=== PATIENT | female | born 1940 | race Caucasian/White ===

== ENCOUNTER 2016-07-05 12:55 | Emergency (ER) | payer OTHER, BC ==
[2016-07-05 13:05] VITALS: RESP 16; TEMP 97.7
--- NOTE | 2016-07-05 13:12 | EDPHY ---
H & P Stated Complaint: fell getting out of bed/hit head on coumadin Time Seen by Provider: 07/05/16 13:11 HPI/ROS: CHIEF COMPLAINT: Head injury on Coumadin HISTORY OF PRESENT ILLNESS: The patient is referred to the emergency department for evaluation of head injury. She apparently fell while getting out of bed today and struck her head. She is currently anticoagulated for history of cardiac thrombus in atrial fibrillation. The patient complains of a mild headache. She has a slight contusion to her temporal scalp. The patient denies any complaints of acute neck pain. She denies any acute numbness or weakness. The patient denies any abdominal, back or extremity pain. REVIEW OF SYSTEMS: A comprehensive 10 point review of systems is otherwise negative aside from elements mentioned in the history of present illness. Source: Patient Exam Limitations: No limitations - Personal History Current Tetanus/Diphtheria Vaccine: Yes Tetanus Vaccine Date: 2014 - Medical/Surgical History Hx Asthma: Yes Hx Chronic Respiratory Disease: No Hx Diabetes: No Hx Cardiac Disease: No Hx Renal Disease: No Hx Cirrhosis: No Hx Alcoholism: Yes Hx HIV/AIDS: No Hx Splenectomy or Spleen Trauma: No Other PMH: PMH: colitis; asthma; migraines; BLE DVT; scaring on broncial tubes; nephritis. PSH: T&A; roberto; R shoulder rotator cuff; tubal ligation; hernia repair; afib - Social History Smoking Status: Former smoker - Physical Exam Exam: General Appearance: Alert, no distress Head: Small contusion noted to the left temporal area, a small nonsuturable laceration and slight hematoma to scalp Eyes: Pupils equal, round, reactive ENT, Mouth: No hemotympanum, no oral trauma Neck: Nontender, trachea midline Respiratory: No chest wall tender, subcutaneous air, lungs clear bilaterally Cardiovascular: Regular rate and rhythm Abdomen: Abdomen is soft and nontender, pelvis stable Skin: No lacerations, No abrasion Back: No midline T/L/S pain Extremities: Nontender, full range of motion Neurological: A&Ox3, normal motor function, normal sensory exam Constitutional: Initial Vital Signs Temperature (C) 36.5 C 07/05/16 13:02 Heart Rate 63 07/05/16 13:02 Respiratory Rate 16 07/05/16 13:02 Blood Pressure 135/87 H 07/05/16 13:02 O2 Sat (%) 92 07/05/16 13:02 O2 Delivery Mode Room Air Allergies/Adverse Reactions: meperidine HCl [From Demerol] Allergy (Severe, Verified 06/18/13 16:52) decreased breathing Penicillins Allergy (Severe, Verified 06/18/13 16:51) Rash Sulfa (Sulfonamide Antibiotics) Allergy (Severe, Verified 06/18/13 16:51) Rash amoxicillin trihydrate [From Augmentin] Allergy (Verified 06/25/13 11:41) meloxicam Allergy (Verified 06/18/13 17:05) indigestion potassium clavulanate [From Augmentin] Allergy (Verified 06/25/13 11:41) cats Allergy (Uncoded 06/18/13 16:52) Home Medications: Medication Instructions Recorded Beclomethasone Qvar 80 [Qvar 80 2 puffs IH BID 06/18/13 (*)] Fexofenadine HCl [Eloina Allergy] 180 mg PO DAILY PRN 06/18/13 Gabapentin [Neurontin] 1,200 mg PO HS 06/18/13 traMADol [Ultram 50 mg (*)] 50 mg PO Q4 PRN 06/18/13 traZODone [traZODONE 50MG (*)] 100 mg PO HS 06/18/13 Herbals/Supplements -Info Only 1 ea PO DAILY 04/25/15 Lansoprazole [Prevacid] 30 mg PO DAILY 04/25/15 Multivitamins [Multivitamin (*)] 1 each PO DAILY 02/19/16 Naphazoline HCl/Pheniramine 1 - 2 drops OP QID PRN 02/19/16 [Opcon-A Eye Drops] oxyCODONE IR [Oxycodone Ir (*)] 5 - 10 mg PO Q3HRS PRN #60 tab 03/14/16 Ondansetron Odt [Zofran Odt 4 mg 4 mg PO Q4 PRN #20 tab 04/04/16 (*)] Acetaminophen [Tylenol 325mg (*)] 650 mg PO Q4 PRN #0 tab 04/08/16 Diltiazem [Cardizem Ir Q6hr] 30 mg PO Q8HRS #0 tab 04/08/16 Warfarin Sodium [Coumadin 5MG (*)] 5 mg PO DAILY16 #0 tab 04/08/16 Hyoscyamine Sulfate 07/05/16 Medical Decision Making - Diagnostics Imaging: CT head without contrast: Images reviewed by myself, negative for intracranial hemorrhage. ED Course/Re-evaluation: The patient presents to the ED for evaluation of head trauma. The patient is currently over 76 years old and anticoagulated with complaints of trauma. A CT scan of the brain has been ordered. 2:00 p.m.: I am informed the patient's head CT scan demonstrates no evidence of intracranial hemorrhage or skull fracture. I examined the patient again. She remains with a GCS of 15. At this point time given the mechanism of her injury I do feel she is low risk for delayed bleeding. I do feel that she can be discharged home with instructions to return to the ED for the development of a more significant headache, neurologic symptoms, vomiting or other concerns. Differential Diagnosis: Differential diagnosis considered includes intracranial hemorrhage, skull fracture, concussion Departure - Departure Disposition: Home, Routine, Self-Care Clinical Impression: Scalp contusion, Anticoagulated Condition: Good Instructions: Scalp Contusion in Adults (ED) Additional Instructions: 1. Return to the ED for the development of severe headache, numbness, weakness , difficulty speaking, vomiting or other concerns. Referrals: Baltazar Paulino MD [Primary Care Provider] - As per Instructions
--- NOTE | 2016-07-05 14:07 | CT ---
CT Head Without Contrast History: Fall from bed and then a heavy lamp fell on head; on Coumadin. Comparison: MR brain June 29, 2012. Technique: Axial unenhanced images were obtained from the vertex through the skull base. Dose reduct ion techniques were utilized. Findings: A small right frontal scalp hematoma is present. Schuster-white differentiation is preserved. T here is mild diffuse cerebral atrophy with scattered periventricular and subcortical low attenuation, suggesting chronic microvascular ischemic gliosis. No intracranial hemorrhage is identified. No ext raaxial fluid collections are identified. There is no mass, mass effect or evidence of infarct. Athe rosclerotic calcification is present in the distal internal carotid arteries. The skull and skull bas e are unremarkable. Mild mucous membrane thickening is present in the paranasal sinuses. Small air fl uid levels are present in the maxillary sinuses. The mastoid air cells are clear. Impression: 1. No acute intracranial findings. 2. Diffuse cerebral atrophy with scattered periventricular and subcortical low attenuation consistent with chronic microvascular ischemic gliosis. 3. Probable acute maxillary sinusitis. Findings discussed with Dr. Trav Perez today at 1357 hours.
[2016-07-05 14:11] VITALS: BP 109/56; PULSE 64; O2SAT 97
== END 2016-07-05 14:11 | disposition home or self-care (01) ==
DX: S00.03XA Contusion of scalp, initial encounter (principal); D68.9 Coagulation defect, unspecified; J45.909 Unspecified asthma, uncomplicated; Z87.891 Personal history of nicotine dependence; W06.XXXA Fall from bed, initial encounter; Y92.003 Bedroom of unspecified non-institutional (private) residence as the place of occurrence of the external cause

== ENCOUNTER → 2016-07-05 | Outpatient (CLI) | payer OTHER, BC ==
--- NOTE | 2016-07-05 12:15 | DX ---
Right Hip, Three Views Indication: Total hip replacement. Follow up. Technique: AP, crosstable lateral, and frog-leg lateral views. Comparison: Two-view hip, April 22, 2016. Findings: A right total hip arthroplasty remains well seated and anatomically aligned. No perihardwar e fracture or lucency. Mild left hip osteoarthritis and moderate severe degenerative disk and facet a rthropathy in the lumbar spine are unchanged. Impression: Well-seated right total hip arthroplasty.
== END ==
LOC: BMCIMAGING 11:04
PROVIDERS: ATTEND Physician Assistant
DX: Z47.1 Aftercare following joint replacement surgery (principal); Z96.641 Presence of right artificial hip joint

== ENCOUNTER → 2016-07-10 | Outpatient (CLI) | payer OTHER, BC ==
--- NOTE | 2016-07-10 16:04 | US ---
Ultrasound Venous Duplex Doppler - Bilateral Legs at 1511 hours History: Pain and swelling. COMPARISON: Ultrasound March 2016 Findings: Ultrasound venous Duplex and Doppler imaging of the bilateral common femoral veins, femoral veins, popliteal veins, calf veins, and greater saphenous vein origins demonstrates normal compressi bility, Duplex color-flow, Doppler flow without deep venous thrombosis. However in the left greater s aphenous vein there is nonocclusive superficial thrombus throughout the left thigh and proximal calf region. Also in the left calf soleal vein there is nonocclusive superficial thrombus. No superficial thrombophlebitis in the right leg. Impression: 1. Superficial thrombophlebitis left leg. 2. No deep venous thrombosis bilateral legs. Message left with Dr. Shawn Paulino at 1600 hour, today. A Document Only message has been documented for Baltazar Paulino MD in the [employer] Critical Result system on 07/10/2016 16:02, Message ID [id number].
== END ==
LOC: FIMAGING 14:55
PROVIDERS: ATTEND Internal Medicine
DX: I80.02 Phlebitis and thrombophlebitis of superficial vessels of left lower extremity (principal)

== ENCOUNTER → 2016-08-01 | Outpatient (CLI) | payer OTHER, BC ==
--- NOTE | 2016-08-01 18:19 | DX ---
Bone Length Study (Single AP Upright Image, at 5:36 PM) Clinical History: 76-year-old female with a prior right hip arthroplasty and a left knee arthroplasty . Rule out limb length discrepancy. ICD 10 Diagnostic Code: M21.70. Comparison Studies: Right hip, dated 07/05/2016, and left knee dated 07/09/2013. Findings: There is a levorotatory lumbar scoliosis and pelvic tilt such that the right iliac crest is slightly higher than the left. There is stable anatomic positioning of the complete right hip arthro plasty and of the lateral left knee femoral-tibial hemiarthroplasty. A meli line dropped from the ce phalad aspect of the prosthetic right femoral head to the tibial plafond measures 5 mm longer than a plumbline dropped from the hopi left femoral head to the left tibial plafond level. Impression: There is a 5 mm limb length discrepancy, right leg longer than the left.
== END ==
LOC: FIMAGING 17:36
PROVIDERS: ATTEND Podiatrist Foot & Ankle Surgery
DX: M21.70 Unequal limb length (acquired), unspecified site (principal)

== ENCOUNTER → 2016-09-06 | Outpatient (CLI) | payer OTHER, BC | LOC: BMCIMAGING 10:57 | PROVIDERS: ATTEND Physician Assistant | DX: Z47.89 Encounter for other orthopedic aftercare (principal); Z96.641 Presence of right artificial hip joint ==

== ENCOUNTER → 2016-10-03 | Outpatient (CLI) | payer OTHER, BC | LOC: FIMAGING 13:57 | PROVIDERS: ATTEND Orthopaedic Surgery Orthopaedic Surgery of the Spine | DX: M41.85 Other forms of scoliosis, thoracolumbar region (principal); M41.86 Other forms of scoliosis, lumbar region; M21.70 Unequal limb length (acquired), unspecified site; M85.88 Other specified disorders of bone density and structure, other site ==

== ENCOUNTER → 2017-04-29 | Outpatient (CLI) | payer OTHER, BC | LOC: BHFA 11:00 | PROVIDERS: ATTEND Internal Medicine Cardiovascular Disease | DX: I48.0 Paroxysmal atrial fibrillation (principal) ==

== ENCOUNTER → 2017-06-30 | Outpatient (CLI) | payer OTHER, BC | LOC: BMCIMAGING 11:59 | PROVIDERS: ATTEND Family Medicine | DX: R60.0 Localized edema (principal) ==

== ENCOUNTER 2017-10-16 15:24 | Emergency (ER) | payer OTHER, BC ==
[2017-10-16] MEDS ORDERED: NS 1,000 ML IV ONE ×2 (15:45→16:18)
[2017-10-16] MEDS ORDERED: ONDANSETRON 4 MG/2 ML VIAL IVP ONE (15:45)
--- NOTE | 2017-10-16 15:55 | EDPHY ---
H & P Stated Complaint: n/v Time Seen by Provider: 10/16/17 15:54 - Personal History Current Tetanus/Diphtheria Vaccine: Yes Current Tetanus Diphtheria and Acellular Pertussis (TDAP): Yes Tetanus Vaccine Date: 2014 - Medical/Surgical History Hx Asthma: Yes Hx Chronic Respiratory Disease: No Hx Diabetes: No Hx Cardiac Disease: Yes Hx Renal Disease: No Hx Cirrhosis: No Hx Alcoholism: Yes Hx HIV/AIDS: No Hx Splenectomy or Spleen Trauma: No Other PMH: PMH: colitis; asthma; migraines; BLE DVT; scaring on broncial tubes; nephritis. PSH: T&A; roberto; R shoulder rotator cuff; tubal ligation; hernia repair; afib - Social History Smoking Status: Former smoker Constitutional: Initial Vital Signs Temperature (C) 37.1 C 10/16/17 15:33 Heart Rate 84 10/16/17 15:33 Respiratory Rate 16 10/16/17 15:33 Blood Pressure 92/60 L 10/16/17 15:33 O2 Sat (%) 93 10/16/17 15:33 O2 Delivery Mode Room Air Allergies/Adverse Reactions: meperidine HCl [From Demerol] Allergy (Severe, Verified 10/16/17 15:29) decreased breathing Penicillins Allergy (Severe, Verified 10/16/17 15:29) Rash Sulfa (Sulfonamide Antibiotics) Allergy (Severe, Verified 10/16/17 15:29) Rash amoxicillin trihydrate [From Augmentin] Allergy (Verified 10/16/17 15:29) meloxicam Allergy (Verified 10/16/17 15:29) indigestion potassium clavulanate [From Augmentin] Allergy (Verified 10/16/17 15:29) cats Allergy (Uncoded 10/16/17 15:29) Home Medications: Medication Instructions Recorded Beclomethasone Qvar 80 [Qvar 80] 2 puffs IH BID 06/18/13 Fexofenadine HCl [Eloina Allergy] 180 mg PO DAILY PRN 06/18/13 Gabapentin [Neurontin] 1,200 mg PO HS 06/18/13 traMADol [Ultram 50 mg (*)] 50 mg PO Q4 PRN 06/18/13 traZODone [traZODONE 50MG (*)] 100 mg PO HS 06/18/13 Herbals/Supplements -Info Only 1 ea PO DAILY 04/25/15 Lansoprazole [Prevacid] 30 mg PO DAILY 04/25/15 Multivitamins [Multivitamin (*)] 1 each PO DAILY 02/19/16 Naphazoline HCl/Pheniramine 1 - 2 drops OP QID PRN 02/19/16 [Opcon-A Eye Drops] oxyCODONE IR [Oxycodone Ir (*)] 5 - 10 mg PO Q3HRS PRN #60 tab 03/14/16 Ondansetron Odt [Zofran Odt 4 mg 4 mg PO Q4 PRN #20 tab 04/04/16 (*)] Acetaminophen [Tylenol 325mg (*)] 650 mg PO Q4 PRN #0 tab 04/08/16 Diltiazem [Cardizem Ir Q6hr] 30 mg PO Q8HRS #0 tab 04/08/16 Warfarin Sodium [Coumadin 5MG (*)] 5 mg PO DAILY16 #0 tab 04/08/16 Hyoscyamine Sulfate 07/05/16 Lasix 10/16/17 Potassium Chloride 10/16/17 Medical Decision Making ED Course/Re-evaluation: CHIEF COMPLAINT: Nausea and vomiting HISTORY OF PRESENT ILLNESS: The patient is a 77 y/o female with a history of C- diff complaining of nausea and vomiting, onset 3 days ago. She has been able to hold down little food or water. She has associated headache. She denies diarrhea , abdominal pain, urinary complaints, or any other associated symptoms. She had some symptoms relief with butterbur this morning. REVIEW OF SYSTEMS: A 10 point review of systems was performed and is negative with the exception of the elements mentioned in the history of present illness. PHYSICAL EXAM: HR, BP, O2 Sat, RR. Temp noted General Appearance: Alert, well hydrated, appropriate, and non-toxic appearing. Head: Atraumatic without scalp tenderness or obvious injury Eyes: Pupils equal, round, reactive to light and accommodation, EOMI, no trauma , no injection. Ears: Clear bilaterally, no perforation, normal landmarks Nose: Atraumatic, no rhinorrhea, clear. Throat: There is no erythema or exudates, no lesions, normal tonsils, mucus membranes dry. Neck: Supple, nontender, no lymphadenopathy. Respiratory: No retractions, no distress, no wheezes, and no accessory muscle use. Lungs are clear to auscultation bilaterally. Cardiovascular: Regular rate and rhythm, no murmurs, rubs, or gallops. Good capillary refill all extremities. Gastrointestinal: Abdomen is soft, nontender, non-distended, no masses, no rebound, no guarding, no peritoneal signs. Musculoskeletal: Normal active ROM of all extremities, atraumatic. Neurological: Alert, appropriate, and interactive. Skin: No rashes, good turgor, no nodules on palpation. Past medical history: C-diff, migraines Past surgical history: Denies Family history: Non-contributory Social history: Daughter at bedside, lives in [place], retired DIAGNOSTICS/PROCEDURES/CRITICAL CARE TIME: DIFFERENTIAL DIAGNOSIS: The differential diagnosis for the patient's nausea and vomiting included but was not limited to gastroenteritis, gastritis, appendicitis, migraine, and medication side effect. MEDICAL DECISION MAKING: The patient presents with nausea, vomiting, and headache, onset 3 days ago. She has associated headache. She has been unable to keep fluids and food down. On exam, her abdomen is benign and her mucus membranes are dry. Plan for Reglan due to patient's headache and possible migraine. Labs will include CBC, chems, and urinalysis. PO challenge when she is no longer nauseated. 4:45 PM- I reassessed the patient and found her condition improved. Labs were normal. She feels much better now. Plan for discharge if PO challenge is successful. 6:00 PM- I reassessed the patient and found her condition improved. She is tolerating PO and has to urinate. I feel she is safe to return home. She agrees to this course of action. - Data Points Laboratory Results: Laboratory Results 10/16/17 15:50 10/16/17 15:50 10/16/17 10/16/17 15:50 15:50 WBC 5.46 10^3/uL 10^3/uL (3.80-9.50) RBC 4.57 10^6/uL 10^6/uL (4.18-5.33) Hgb 14.5 g/dL g/dL (12.6-16.3) Hct 42.6 % % (38.0-47.0) MCV 93.2 fL fL (81.5-99.8) MCH 31.7 pg pg (27.9-34.1) MCHC 34.0 g/dL g/dL (32.4-36.7) RDW 13.7 % % (11.5-15.2) Plt Count 309 10^3/uL 10^3/uL (150-400) MPV 9.0 fL fL (8.7-11.7) Neut % (Auto) 63.2 % % (39.3-74.2) Lymph % (Auto) 24.7 % % (15.0-45.0) [place] % (Auto) 7.7 % % (4.5-13.0) Eos % (Auto) 2.7 % % (0.6-7.6) Baso % (Auto) 1.3 % % (0.3-1.7) Nucleat RBC Rel Count 0.0 % % (0.0-0.2) Absolute Neuts (auto) 3.45 10^3/uL 10^3/uL (1.70-6.50) Absolute Lymphs (auto) 1.35 10^3/uL 10^3/uL (1.00-3.00) Absolute Monos (auto) 0.42 10^3/uL 10^3/uL (0.30-0.80) Absolute Eos (auto) 0.15 10^3/uL 10^3/uL (0.03-0.40) Absolute Basos (auto) 0.07 10^3/uL 10^3/uL (0.02-0.10) Absolute Nucleated RBC 0.00 10^3/uL 10^3/uL (0-0.01) Immature Gran % 0.4 % % (0.0-1.1) Immature Gran # 0.02 10^3/uL 10^3/uL (0.00-0.10) Sodium 140 mEq/L mEq/L (135-145) Potassium 3.8 mEq/L mEq/L (3.5-5.2) Chloride 104 mEq/L mEq/L (97-110) Carbon Dioxide 26 mEq/l mEq/l (22-31) Anion Gap 10 mEq/L mEq/L (8-16) BUN 14 mg/dL mg/dL (7-23) Creatinine 0.7 mg/dL mg/dL (0.6-1.0) Estimated GFR > 60 Glucose 93 mg/dL mg/dL (70-100) Calcium 9.6 mg/dL mg/dL (8.5-10.4) Medications Given: Discontinued Medications Sodium Chloride (Ns) 1,000 mls @ 0 mls/hr IV ONCE ONE PRN Reason: Wide Open Stop: 10/16/17 15:46 Last Admin: 10/16/17 15:48 Dose: 1,000 mls Sodium Chloride (Ns) 1,000 mls @ 0 mls/hr IV EDNOW ONE; Wide Open PRN Reason: Protocol Stop: 10/16/17 16:19 Last Admin: 10/16/17 16:25 Dose: 1,000 mls Famotidine/Sodium Chloride (Pepcid 20 Mg (Premix)) 50 mls @ 200 mls/hr IV EDNOW ONE Stop: 10/16/17 16:32 Last Admin: 10/16/17 16:25 Dose: 50 mls Metoclopramide HCl (Reglan Injection) 10 mg IVP EDNOW ONE Stop: 10/16/17 16:20 Last Admin: 10/16/17 16:27 Dose: 10 mg Ondansetron HCl (Zofran) 4 mg IVP EDNOW ONE Stop: 10/16/17 15:46 Last Admin: 10/16/17 15:48 Dose: 4 mg Departure - Departure Disposition: Home, Routine, Self-Care Clinical Impression: Dehydration Nausea & vomiting Qualifiers: Vomiting type: unspecified Vomiting Intractability: non-intractable Qualified Code(s): R11.2 - Nausea with vomiting, unspecified Condition: Good Instructions: Dehydration (ED), Acute Nausea and Vomiting (ED) Additional Instructions: 1. For your nausea and vomiting, I suggested you start with a bland diet and advance as tolerated. This means start with clear liquids such as water, Gatorade, juice, flat non-caffeinated soda. If you tolerate clear liquids, then you may add bland foods such as bananas, rice, or toast. If you do not have any worsening of your symptoms, you may begin to resume a regular diet. 2. Follow-up with your primary care provider for continued symptoms in 1 to 2 days. 3. Return to the emergency department for vomiting blood, faintness, or any other worsening of condition. Referrals: Baltazar Paulino MD [Primary Care Provider] - As per Instructions Report Scribed for: Sam Soria Report Scribed by: Jeni Villarreal Date of Report: 10/16/17 Time of Report: 16:25
[2017-10-16] MEDS ORDERED: FAMOTIDINE 20 MG/NACL 50 ML IV ONE (16:18)
[2017-10-16] MEDS ORDERED: METOCLOPRAMIDE 10 MG/2 ML VIAL IVP ONE (16:19)
[2017-10-16 16:35] LABS: PLATELET COUNT 309 10^3/uL (150-400)
[2017-10-16 18:07] VITALS: BP 132/80
== END 2017-10-16 18:13 | disposition home or self-care (01) ==
DX: R11.2 Nausea with vomiting, unspecified (principal); E86.0 Dehydration; E86.9 Volume depletion, unspecified; J45.909 Unspecified asthma, uncomplicated; Z79.01 Long term (current) use of anticoagulants; Z87.891 Personal history of nicotine dependence
CPT/HCPCS: 96361; 96365; 96375; 99284; J2405; J2765

== ENCOUNTER → 2017-12-03 | Outpatient (CLI) | payer OTHER, BC | LOC: BHFA 09:30 | PROVIDERS: ATTEND Internal Medicine Cardiovascular Disease | DX: R07.9 Chest pain, unspecified (principal); I25.10 Atherosclerotic heart disease of native coronary artery without angina pectoris; I48.0 Paroxysmal atrial fibrillation | CPT/HCPCS: 78452; 93017; A9500; J2785 ==

== ENCOUNTER → 2018-03-09 | Outpatient (CLI) | payer OTHER, BC | LOC: BMCIMAGING 17:05 | PROVIDERS: ATTEND Emergency Medicine | DX: S89.92XA Unspecified injury of left lower leg, initial encounter (principal); Z96.652 Presence of left artificial knee joint ==

== ENCOUNTER 2018-09-23 23:36 | Observation (INO) | payer OTHER, BC ==
--- NOTE | 2018-09-23 23:54 | EDPHY ---
H & P Stated Complaint: cat scratch right arm and vomiting/diarrhea Time Seen by Provider: 09/23/18 23:54 HPI/ROS: HPI CHIEF COMPLAINT: Cat scratch, redness and swelling to right arm HISTORY OF PRESENT ILLNESS: 78-year-old female, presents emergency room stating around noon today her cat scratch turn her right arm. This is on the palmar side distal aspect of her right forearm. She now has an area of 10 cm x 5 cm erythema, swelling, discomfort. In the center of this is a small laceration nonsuturable. No pus. However it is mildly red and warm. Additionally she reports before this happening she had a couple episodes of diarrhea vomiting she believes she ate bad pizza last night. This is since resolved. No significant abdominal pain. Denies chest pain or shortness of breath Past Medical History: Hypertension, AFib, DVT, migraines, Past Surgical History: No recent surgery Social History: Denies drugs alcohol tobacco Family History: Noncontributory ROS REVIEW OF SYSTEMS: 10 Systems were reviewed and negative with the exception of the elements mentioned in the history of present illness. Exam Constitutional triage nursing summary reviewed, vital signs reviewed, awake/ alert. Eyes normal conjunctivae and sclera, EOMI, PERRLA. HENT normal inspection, atraumatic, moist mucus membranes, no epistaxis, neck supple/ no meningismus, no raccoon eyes. Respiratory clear to auscultation bilaterally, normal breath sounds, no respiratory distress, no wheezing. Cardiovascular rate normal, regular rhythm, no murmur, no edema, distal pulses normal. Gastrointestinal soft, non-tender, no rebound, no guarding, normal bowel sounds, no distension, no pulsatile mass. Genitourinary no CVA tenderness. Musculoskeletal no midline vertebral tenderness, full range of motion, no calf swelling, no tenderness of extremities, no meningismus, good pulses, neurovascularly intact. Skin right upper extremity: Mild erythema and warmth and tenderness to the right distal aspect of the forearm palmar side. The center of this area there is a small laceration. No pus. Nonsuturable. Neurologic awake, alert and oriented x 3, AAOx3, moves all 4 extremities equally, motor intact, sensory intact, CN II-XII intact, normal cerebellar, normal vision, normal speech. Psychiatric normal mood/affect. Heme/Lymph/Immune no lymphadenopathy. Differential Diagnosis: Includes but is not limited to in a particular order arm cellulitis, infection, cat scratch disease Medical Decision Making: Plan for this patient IV establishment basic labs, IV Ancef, gentle IV fluids and re-evaluate Re-evaluation: 0227: Discussed with the patient for need for admission the hospital for cellulitis of the right forearm from a cat scratch rather large area upon arrival. During her ER visit of 3 hr he did track up her arm slightly. It has been outlined. She received 2 g IV Ancef. IV fluids, labs reviewed reassuring. Patient is agreeable for admission overnight Dr. Matos consulted. Source: Patient - Personal History Current Tetanus/Diphtheria Vaccine: Yes Current Tetanus Diphtheria and Acellular Pertussis (TDAP): Yes Tetanus Vaccine Date: 2014 - Medical/Surgical History Hx Asthma: Yes Hx Chronic Respiratory Disease: No Hx Diabetes: No Hx Cardiac Disease: Yes Hx Renal Disease: No Hx Cirrhosis: No Hx Alcoholism: Yes Hx HIV/AIDS: No Hx Splenectomy or Spleen Trauma: No Other PMH: PMH: colitis; asthma; migraines; BLE DVT; scaring on broncial tubes; nephritis. PSH: T&A; roberto; R shoulder rotator cuff; tubal ligation; hernia repair; afib - Social History Smoking Status: Former smoker Constitutional: Initial Vital Signs Temperature (C) 36.8 C 09/23/18 23:38 Heart Rate 92 09/23/18 23:38 Respiratory Rate 16 09/23/18 23:38 Blood Pressure 117/78 09/23/18 23:38 O2 Sat (%) 94 09/23/18 23:38 O2 Delivery Mode Room Air Allergies/Adverse Reactions: meperidine HCl [From Demerol] Allergy (Severe, Verified 09/23/18 23:42) decreased breathing Penicillins Allergy (Severe, Verified 09/23/18 23:42) Rash Sulfa (Sulfonamide Antibiotics) Allergy (Severe, Verified 09/23/18 23:42) Rash amoxicillin trihydrate [From Augmentin] Allergy (Verified 09/23/18 23:42) meloxicam Allergy (Verified 09/23/18 23:42) indigestion potassium clavulanate [From Augmentin] Allergy (Verified 09/23/18 23:42) cats Allergy (Uncoded 09/23/18 23:42) Home Medications: Medication Instructions Recorded Beclomethasone Qvar 80 [Qvar 80] 2 puffs IH BID 06/18/13 Fexofenadine HCl [Eloina Allergy] 180 mg PO DAILY PRN 06/18/13 Gabapentin [Neurontin] 1,200 mg PO HS 06/18/13 traZODone [traZODONE 50MG (*)] 100 mg PO HS 06/18/13 Herbals/Supplements -Info Only 1 ea PO DAILY 04/25/15 Multivitamins [Multivitamin (*)] 1 each PO DAILY 02/19/16 Naphazoline HCl/Pheniramine 1 - 2 drops OP QID PRN 02/19/16 [Opcon-A Eye Drops] Acetaminophen [Tylenol 325mg (*)] 650 mg PO Q4 PRN #0 tab 04/08/16 Hyoscyamine Sulfate [Levsin, 0.125 mg PO DAILY PRN 07/05/16 Hyomax-Sl 0.125 mg (*)] Furosemide [Lasix 20 MG (*)] 20 mg PO DAILY 10/16/17 Potassium Cl [Klor-Con] 10 meq PO DAILY 10/16/17 Diltiazem [Cardizem Ir Q6hr] 30 mg PO DAILY@02 09/24/18 Estradiol [Estrace Vaginal (*)] 1 gm VG Q3D 09/24/18 Levalbuterol Inhaler [Xopenex Hfa 2 puffs IH BID PRN 09/24/18 Inhaler (*)] Propylene Glycol/Peg 400 [Systane 1 drop OP HS 09/24/18 Gel Eye Drops] Propylene Glycol/Peg 400/Pf 2 each OP BID 09/24/18 [Systane Ultra 0.4-0.3% Eye Drp] Triamcinolone Acetonide [Nasacort] 2 spray NS DAILY 09/24/18 Warfarin Sodium [Coumadin 5MG (*)] 5 mg PO DAILY@02 09/24/18 Medical Decision Making - Data Points Laboratory Results: Laboratory Results 09/24/18 00:08 09/24/18 00:08 Medications Given: Beclomethasone Dipropionate (Qvar Redihaler) 2 inh IH BID KEV Stop: 03/23/19 20:59 Last Admin: 09/24/18 18:30 Dose: 2 inh Estradiol (Estrace Vaginal) 1 gm VG Q3D KEV Stop: 03/23/19 12:44 Last Admin: 09/24/18 14:32 Dose: Not Given Gabapentin (Neurontin) 1,200 mg PO HS [facility] Stop: 03/23/19 20:59 Last Admin: 09/24/18 21:17 Dose: 1,200 mg Cefazolin Sodium/Dextrose (Ancef 1 Gm (Premix)) 50 mls @ 200 mls/hr IV Q8H KEV PRN Reason: Protocol Stop: 10/24/18 07:59 Last Admin: 09/24/18 23:51 Dose: 50 mls Miscellaneous Medication (Propylene Glycol/Peg 400/Pf [Systane Ultra 0.4-0.3% Eye Drp]) 2 each OP BID [facility] Stop: 03/23/19 20:59 Last Admin: 09/24/18 20:47 Dose: Not Given Miscellaneous Medication (Propylene Glycol/Peg 400 [Systane Gel Eye Drops]) 1 drop OP HS [facility] Stop: 03/23/19 20:59 Last Admin: 09/24/18 20:47 Dose: Not Given Ondansetron HCl (Zofran) 4 mg IVP Q4HRS PRN PRN Reason: Nausea/Vomiting, Can't Take PO Stop: 03/23/19 02:32 Last Admin: 09/24/18 19:04 Dose: 4 mg Trazodone HCl (Trazodone) 100 mg PO [facility] Stop: 03/23/19 20:59 Last Admin: 09/24/18 21:17 Dose: 100 mg Warfarin Sodium (Message-Coumadin Daily Order) 1 ea MISC DAILY@1500 [facility] Stop: 03/23/19 14:59 Last Admin: 09/24/18 15:08 Dose: 1 ea Discontinued Medications Diltiazem HCl (Cardizem Immediate Release) 30 mg PO Q8HRS [facility] Stop: 03/23/19 04:29 Last Admin: 09/24/18 05:04 Dose: 30 mg Sodium Chloride (Ns) 1,000 mls @ 0 mls/hr IV EDNOW ONE; Wide Open PRN Reason: Protocol Stop: 09/24/18 00:00 Last Admin: 09/24/18 00:18 Dose: 1,000 mls Cefazolin Sodium/Dextrose (Ancef) 100 mls @ 200 mls/hr IV EDNOW ONE PRN Reason: Protocol Stop: 09/24/18 00:28 Last Admin: 09/24/18 00:18 Dose: 100 mls Trazodone HCl (Trazodone) 100 mg PO HS KEV Stop: 03/23/19 04:29 Last Admin: 09/24/18 05:06 Dose: Not Given Warfarin Sodium (Coumadin) 5 mg PO ONCE ONE Stop: 09/24/18 04:26 Last Admin: 09/24/18 05:05 Dose: 5 mg Departure - Departure Disposition: [facility] Acute Clinical Impression: Cat scratch Cellulitis Qualifiers: Site of cellulitis: extremity Site of cellulitis of extremity: upper extremity Laterality: right Qualified Code(s): L03.113 - Cellulitis of right upper limb Condition: Good
[2018-09-23] MEDS ORDERED: ceFAZolin 2 GM/DEXTROSE 100 ML IV ONE (23:59)
[2018-09-23] MEDS ORDERED: NS 1,000 ML IV ONE (23:59)
[2018-09-24 00:35] LABS: PLATELET COUNT 305 10^3/uL (150-400)
[2018-09-24 01:00] LABS: INR 2.33 (0.83-1.16); PROTIME(PATIENT) 24.4 SEC (12.0-15.0)
[2018-09-24] MEDS ORDERED: ACETAMINOPHEN 325 MG TAB PO PRN (02:33)
[2018-09-24] MEDS ORDERED: ONDANSETRON 4 MG/2 ML VIAL IVP PRN (02:33)
[2018-09-24] MEDS ORDERED: diphenhydrAMINE 25 MG CAP PO PRN (02:33)
[2018-09-24] MEDS ORDERED: ONDANSETRON DISINTEGRATING 4 MG TAB PO PRN (02:33)
[2018-09-24] MEDS ORDERED: WARFARIN SODIUM 5 MG TAB PO ONE (04:25)
[2018-09-24] MEDS ORDERED: traMADol 50 MG TAB PO PRN (04:25)
[2018-09-24] MEDS ORDERED: DILTIAZEM 60 MG TAB PO SCH (04:30)
[2018-09-24] MEDS ORDERED: traZODone 50 MG TAB PO SCH ×2 (04:30→21:00)
--- NOTE | 2018-09-24 06:05 | GHP ---
[f rep st] HISTORY AND PHYSICAL DATE OF ADMISSION: 09/24/2018 COURSE: Patient provides history, appears reliable. EMR was reviewed and case discussed with ED provider. CHIEF COMPLAINT: Right arm pain, swelling after cat scratch. HISTORY OF PRESENT ILLNESS: This is a very pleasant 78-year-old female with past medical history significant for atrial fibrillation on anticoagulation with Coumadin, remote history of DVT, HTN, migraine, asthma, and chronic kidney disease. Presents emergency department today with complaints of worsening redness and swelling in her right arm. The patient reports that early in the afternoon, she was trying to get her cat into the cat carrier for a erisa attorney appointment when the cat was trying to escape and scratched her with a puncture king in her right central forearm on the flexor side. Patient has had a history of a cat scratch previously. Has never had any issues. She noted shortly thereafter she had a small area of erythema and swelling. Over the course of several hours the patient's redness and swelling extended proximally. The patient is also having increasing pain. Denies any numbness, tingling. No fevers or chills. The patient does note that she did have a few episodes of nausea, vomiting, and diarrhea at home earlier in the day. She reports that she had developed some upset stomach symptoms a week ago and is currently getting over a cough and viral-type symptoms for the past several days. REVIEW OF SYSTEMS: Ten systems reviewed, negative except as noted above. ALLERGIES: Demerol, penicillin, sulfa, amoxicillin, meloxicam, and cat scratch generally will cause a local response. HOME MEDICATIONS: As available per EMR. Still awaiting review with pharmacy. Trazodone, tramadol, oxycodone, Coumadin, Zofran, eyedrops, multivitamin, Prevacid, hyoscyamine, gabapentin, fexofenadine , diltiazem, Qvar, and Tylenol. PAST MEDICAL HISTORY: Significant for atrial fibrillation on anticoagulation, remote history of DVT, HTN, migraine headache, asthma, nephritis, chronic pain. PAST SURGICAL HISTORY: Significant for tonsillectomy, adenoidectomy, cholecystectomy, right shoulder surgery, BTL, hernia repair. FAMILY HISTORY: Mother and sister with leukemia. Brother with history of DVT. SOCIAL HISTORY: Patient is . She lives with her . She quit smoking remotely. She drinks occasional alcohol. No illicit drugs. CODE STATUS: Full. PHYSICAL EXAMINATION: VITAL SIGNS: Upon arrival to the emergency department, blood pressure 117/78, heart rate 92, respiratory rate 16, O2 saturation 94% on room air, temperature 36.8. VITAL SIGNS: Currently available, blood pressure is 127/76, heart rate 77, respiratory rate 16, O2 saturation 92% on room air, temperature 36.7. GENERAL: No acute distress. Very pleasant older adult female, resting quietly in bed. HEAD: Normocephalic, atraumatic. Of thin build, but not cachectic. HEAD: Normocephalic, atraumatic. EYES: Extraocular muscles are grossly intact. Pupils equal, round, slightly decreased reactivity light bilaterally, but symmetric. No scleral icterus, conjunctival injection. Lens reflexes appreciated bilaterally. ENT: Mucus membranes appear moist. No oropharyngeal, erythema, or exudates. No nasal discharge. NECK: Supple, trachea midline. CV: Regular rate and rhythm. No murmurs, rubs, gallops appreciated. RESPIRATORY: Lungs clear to auscultation bilaterally. No wheezes, rales, or rhonchi appreciated. ABDOMEN: Positive bowel sounds. Soft. No tenderness to palpation. No rebound, guarding, or masses appreciated. : No suprapubic tenderness to palpation. No Lawrence catheter in place. MUSCULOSKELETAL: Patient able to move all extremities. Generalized weakness with some limited movement in the right proximal forearm due to pain. NEURO: Grossly nonfocal, no facial drooping. Moves all extremities. PSYCH: Thought process content, questions appropriate. Patient pleasant and cooperative. LABORATORY STUDIES: WBC 6.06, H and H 13.9 and 40.8, MCV 92.9, platelet count 305, no bands. PT 24.4, INR is 2.33, PTT is 38.3. Sodium is 141, potassium 3.8, chloride is 110, CO2 22, anion gap 9, BUN 16, creatinine 0.6. GFR greater than 60, glucose 97, calcium 9.1. ASSESSMENT AND PLAN: A pleasant 78-year-old female with history of hypertension , a deep venous thrombosis remotely, atrial fibrillation on chronic anticoagulation, and asthma who presents to the emergency department almost 12 hours following a cat scratch. 1.Right arm cellulitis due to cat scratch. Patient with a notable central puncture king. There is no drainage or induration present. The patient does have erythema and swelling extending around the puncture site. Mild tenderness to palpation. She has no decreased range of motion in the right upper extremity. Does not be appear to be any lymphangitic streaking. Patient has been started on Ancef at this time. I do not feel any indication for addition of more antibiotics at this time. For any worsening symptoms, consider Infectious Disease or Orthopedic consult as per day team. The patient without any qualifications for systemic inflammatory response syndrome or sepsis at this time. Does require intravenous antibiotics given the rapidity of the progression of her infectious state. 2. No evidence of lymphangitis. 3. Acute pain. Supportive care. Tylenol. Resume patient's tramadol, p.r.n. Tylenol. 4. Atrial fibrillation. Rate is controlled at this time. Continue patient's diltiazem. Continue Coumadin. 5. Remote history of deep venous thrombosis and therapeutic INR. Sequential compression devices as tolerated. 6. Benign essential hypertension. Patient's blood pressures are adequate at this time. Continue her diltiazem. 7. Asthma. Continue patient's Qvar, albuterol p.r.n. 8. Reflux. Continue proton pump inhibitor per formulary. 9. Fluid, electrolyte, nutrition. Status post intravenous fluid in the emergency department. Patient appears adequately hydrated and tolerating p.o. Will continue to encourage p.o. intake. 10. Code status is full. DISPOSITION: Patient admitted to observation status initially on the med/surg floor for continued IV antibiotics and monitoring of progression of infectious process. We will reassess the patient's improvement later in the morning. She may require consideration for greater than 2 midnight stay. /[id number]/MODL MTDD
--- NOTE | 2018-09-24 12:23 | HOSPPROG ---
Hospitalist Progress Note Assessment/Plan: Patient is a 78 y/o female who presented to the ER after getting a cat scratch. *r arm cellulitis (no lymphangitis) -Ancef * Pain due to this -prn tramadol *AF -rate controlled w diltiazem, on OAC INR is 2.3 *hx of dvt *HTN -bp a bit elevated today *plan: will need another midnight stay for treatment with IV antibiotics. >30 minutes seeing Pat and f/u care. Subjective: Pat said the swelling in her arm is improved. Objective: Vital Signs Temp Pulse Resp BP Pulse Ox 37.1 C 86 16 148/91 H 91 L 09/24/18 11:28 09/24/18 11:28 09/24/18 11:28 09/24/18 11:28 09/24/18 11:28 09/23/18 09/24/18 09/25/18 05:59 05:59 05:59 Intake Total 0 100 Output Total 250 150 Balance -250 -50 PT 24.4 SEC (12.0-15.0) H 09/24/18 00:36 INR 2.33 (0.83-1.16) H 09/24/18 00:36 - Physical Exam Constitutional: no apparent distress, appears nourished, not in pain Eyes: PERRL Ears, Nose, Mouth, Throat: hearing normal Cardiovascular: regular rate and rhythym Respiratory: no respiratory distress Gastrointestinal: normoactive bowel sounds Skin: warm, other (right forearm w a small scratch, redness extends from wrist upto the ac area. Warm, slightly tender w palp) Musculoskeletal: full muscle strength Neurologic: AAOx3 Psychiatric: interacting appropriately ICD10 Worksheet Patient Problems: Problems Problem Status Onset Cat scratch Acute Cellulitis Acute Acute generalized abdominal pain Acute Atrial fibrillation Acute Atrial fibrillation with rapid ventricular response Acute C. difficile diarrhea Acute 04/06/16 Chronic Disease Mgmt/Transitional Care Acute Degenerative arthritis of knee Acute Dehydration Acute
[2018-09-24] MEDS ORDERED: LEVALBUTEROL INHALER 200 PUFFS/15 GM MDI IH PRN (12:30)
[2018-09-24] MEDS ORDERED: HYOSCYAMINE SULFATE 0.125 MG TAB PO PRN (12:30)
[2018-09-24] MEDS ORDERED: PHENIRAMINE OP PRN (12:30)
[2018-09-24] MEDS ORDERED: NAPHAZOLINE HCL OP PRN (12:30)
[2018-09-24] MEDS ORDERED: ESTRADIOL 42.5 GM CRTUBE VG SCH (12:45)
[2018-09-24] MEDS ORDERED: CETIRIZINE 10 MG TAB PO PRN (12:46)
--- NOTE | 2018-09-24 17:04 | ASMTCMCOM ---
CM Note CM Note Notes: Pt admitted for scratch by cat, no therapies ordered. Anticipate she will dc home with support of when medically stable. CM available for any changes. DC Plan: Independent Date Signed: 09/24/2018 05:03 PM Electronically Signed By:Leana Bourne RN
[2018-09-24] MEDS: BECLOMETHASONE QVAR 80 REDIHALER 120 INH/10.6 GM MDI IH SCH (18:30)
[2018-09-24] MEDS: POLYETHYLENE GLYCOL 400 OP SCH (20:47)
[2018-09-24] MEDS: PROPYLENE GLYCOL OP SCH (20:47)
[2018-09-24] MEDS ORDERED: Propylene Glycol/Peg 400 [Systane Gel Eye Drops] 1 DROP OP SCH (21:00)
[2018-09-24] MEDS ORDERED: GABAPENTIN 400 MG CAP PO SCH (21:00)
[2018-09-25] MEDS ORDERED: WARFARIN SODIUM 5 MG TAB PO SCH (02:00)
[2018-09-25] MEDS ORDERED: DILTIAZEM 30 MG TAB PO SCH (02:00)
[2018-09-25 05:21] LABS: INR 2.45 (0.83-1.16); PROTIME(PATIENT) 25.4 SEC (12.0-15.0)
[2018-09-25] MEDS ORDERED: BISACODYL 10 MG SUPP PR PRN (08:53)
[2018-09-25] MEDS ORDERED: MAGNESIUM HYDROXIDE 30 ML UDCUP PO PRN (08:53)
[2018-09-25] MEDS ORDERED: LACTULOSE 20 GM/30 ML UDCUP PO PRN (08:53)
[2018-09-25] MEDS ORDERED: SENNOSIDES/DOCUSATE SODIUM TAB PO SCH (09:00)
[2018-09-25] MEDS: BECLOMETHASONE QVAR 80 REDIHALER 120 INH/10.6 GM MDI IH SCH (09:00)
[2018-09-25] MEDS ORDERED: FLUTICASONE NASAL 120 SPRAYS/16 GM MDI EACHNARE SCH (09:00)
[2018-09-25] MEDS ORDERED: MULTIVITAMINS 1 EACH TAB PO SCH (09:00)
[2018-09-25] MEDS ORDERED: FUROSEMIDE 20 MG TAB PO SCH (09:00)
[2018-09-25] MEDS ORDERED: POLYETHYLENE GLYCOL 3350 17 GM PKT PO SCH (09:00)
[2018-09-25] MEDS ORDERED: POTASSIUM CL 10 MEQ TAB PO SCH (09:00)
[2018-09-25] MEDS: PROPYLENE GLYCOL OP SCH (10:19)
[2018-09-25] MEDS: POLYETHYLENE GLYCOL 400 OP SCH (10:19)
--- NOTE | 2018-09-25 11:59 | HOSPPROG ---
Hospitalist Progress Note Assessment/Plan: Patient is a 78 y/o female who presented to the ER after getting a cat scratch. *r arm cellulitis (no lymphangitis) -Ancef -much improved -suspect since she improved so quickly she has a staph infection from her own skin florea -dc on Keflex (reviewed risks of abx and c diff and when to f/u w her PCP * Pain due to this -prn tramadol -much improved *AF -rate controlled w diltiazem, on OAC INR is 2.45 *hx of dvt *HTN -bp stable, bit low side of normal *plan: dc home w close f/u with her PCP Subjective: Pat is feeling much better today. Objective: Vital Signs Temp Pulse Resp BP Pulse Ox 36.6 C 76 18 101/68 91 L 09/25/18 11:36 09/25/18 11:36 09/25/18 11:36 09/25/18 11:36 09/25/18 11:36 09/24/18 09/25/18 09/26/18 05:59 05:59 05:59 Intake Total 0 1150 Output Total 250 2450 Balance -250 -1300 PT 25.4 SEC (12.0-15.0) H 09/25/18 05:02 INR 2.45 (0.83-1.16) H 09/25/18 05:02 - Physical Exam Constitutional: no apparent distress, appears nourished, not in pain Eyes: PERRL Ears, Nose, Mouth, Throat: hearing normal Respiratory: no respiratory distress Skin: warm, other (right forearm area with almost resolution of warmth and redness, slight pink along edges marked by nursing staff ) Musculoskeletal: full muscle strength Neurologic: AAOx3 Psychiatric: interacting appropriately ICD10 Worksheet Patient Problems: Problems Problem Status Onset Cat scratch Acute Cellulitis Acute Acute generalized abdominal pain Acute Atrial fibrillation Acute Atrial fibrillation with rapid ventricular response Acute C. difficile diarrhea Acute 04/06/16 Chronic Disease Mgmt/Transitional Care Acute Degenerative arthritis of knee Acute Dehydration Acute
[2018-09-25 12:36] VITALS: BP 102/62
--- NOTE | 2018-09-25 13:39 | GDS ---
[f rep st] DISCHARGE SUMMARY DISCHARGE DIAGNOSES: 1. Right forearm cellulitis secondary to a cat scratch. 2. Pain due to this. 3. Atrial fibrillation. 4. History of deep vein thrombosis. 5. Hypertension. Briefly, the patient is a very sweet lady, who presented to the Emergency Room after getting scratche d by her cat. She was treated with cefazolin. This is much improved. Suspect it was not the cat sc ratch that caused the infection, but her own skin giovani. She will be discharged home on oral antibio tics and follow up with Dr. Paulino in the outpatient setting. HOSPITAL COURSE BY PROBLEM: 1. Right arm cellulitis. She had no lymphangitis. It is markedly improved. Continue antibiotics a s ordered. 2. Pain due to this, resolved. 3. Atrial fibrillation. She is rate controlled with diltiazem. Her INR is therapeutic at 2.45. 4. History of DVT, stable. 5. Hypertension. A little bit on the low side of normal. DISCHARGE CONDITION: Stable. Blood pressure is 101/68, O2 saturation on room air is 91%, respiratory rate is 18, pulse is 76, temp erature is 36.6 Celsius. MEDICATIONS AT DISCHARGE: Please see the EMR. DISCHARGE INSTRUCTIONS: 1. To continue antibiotics as she has done. 2. Note that she has more than 3 liquidy stools a day. To see her PCP immediately to be sure she do es not have any Clostridium difficile. 3. If her right arm gets more swollen, red, or she develops fever or chills, return to the ER. /[id number]/MODL
== END 2018-09-25 13:13 | disposition home or self-care (01) ==
LOC: F3E 09-24 03:57
PROVIDERS: ADMIT Family Medicine; ATTEND Nurse Practitioner Family
DX: L03.113 Cellulitis of right upper limb (principal); M79.631 Pain in right forearm; S50.811A Abrasion of right forearm, initial encounter; W55.03XA Scratched by cat, initial encounter; Y93.K9 Activity, other involving animal care; Y92.59 Other trade areas as the place of occurrence of the external cause; I48.91 Unspecified atrial fibrillation; I10 Essential (primary) hypertension; Z86.718 Personal history of other venous thrombosis and embolism; Z79.01 Long term (current) use of anticoagulants
CPT/HCPCS: G0378; J0690; J2405; 96374

== ENCOUNTER → 2018-12-09 | Outpatient (CLI) | payer OTHER, BC | LOC: BMCIMAGING 13:20 ==